=== PATIENT | male | born 1945 | race Caucasian/White ===

== ENCOUNTER 2023-12-03 08:18 | Outpatient (REF) | payer OTHER, SELFPAY ==
--- NOTE | ~2023-12-03 | XR_ITS ---
EXAMINATION: XR KNEE, RIGHT CLINICAL INFORMATION: Right knee pain COMPARISON: None available. TECHNIQUE: Three views of the right knee. FINDINGS: Medial compartment narrowing with degenerative sclerosis and marginal osteophytes. Small marginal osteophytes in the patellofemoral and lateral compartments. Prominent enthesophyte at the superior pole of the patella. No fracture. No joint effusion. Prominent vascular calcifications. XR/XR knee RT 3V IMPRESSION: Moderate medial compartment and mild patellofemoral/lateral compartment osteoarthritis. No acute osseous abnormality. Prepatellar soft tissue swelling, possibly prepatellar bursitis. Electronically signed by: Zhang Tariq MD 12/09/2023 08:50 AM EDT
== END 2023-12-03 08:19 | disposition home or self-care (01) ==
LOC: HO.HOSX 08:18
PROVIDERS: PCP Internal Medicine; Visit Provider Orthopaedic Surgery
DX: M17.11 Unilateral primary osteoarthritis, right knee (principal)
CPT/HCPCS: 73562

== ENCOUNTER 2023-12-03 09:15 | Outpatient (AMB) | payer OTHER, SELFPAY ==
--- NOTE | 2023-12-03 09:16 | MHC.OFFVIS ---
Vital Signs 12/03/23 09:18 Height 5 ft 8 in Weight 175 lb BMI 26.6 Intake Visit Reasons: right knee pain Intake Note: Dalton is a 78 year old male who presents with complaints of progressively worsening right knee pain. He did undergo left total knee replacement surgery several years ago. He reports minimal discomfort in his left knee. He describes his right knee pain as sharp and severe in nature. He has failed the last 3 months of conservative treatment which include a home exercise program, Tylenol and anti-inflammatory medicines. Has had cortisone injections in the past which gave him minimal relief. He also had a series of 3 Euflexxa injections given into his right knee at another facility in April of 2023. He states he got fairly good relief from the Euflexxa injections. He wishes to hold off on right total knee replacement surgery for as long as possible. The patient states that his right knee pain is now interfering with his activities of daily living and his ability to sleep well through the night. Allergies No Known Allergies Allergy (Verified 12/03/23 09:20) Medication List - Last Reconciled 12/03/23 by Jules Escobar MD No Known Home Meds Physical Exam Vital Signs: BMI result Body Mass Index 26.6 Const Other: Well-nourished well-developed very friendly male awake alert and oriented x3 in no acute distress Extrem Other: Bilateral lower extremity examination shows good capillary refill, no skin lesions noted, normal sensation light touch Right knee examination shows a minimal effusion, palpable crepitus with range of motion, pain with range motion, no instability Results Reviewed Results Reviewed: X-rays of the patient's right knee taken today show severe joint space narrowing, subchondral sclerosis, no acute bony abnormalities Assessment & Plan Assessment & Plan (1) Osteoarthritis of right knee: Code(s): M17.11 - Unilateral primary osteoarthritis, right knee Category: Medical Plan Mr. Ribeiro presents with right knee pain due to degenerative joint disease. I had a lengthy discussion with the patient regarding the treatment options. The patient wishes to hold off on right total knee replacement surgery for as long as possible. I agree with this plan. I will see whether or not the patient's insurance company will cover a another series of three Euflexxa injections. I will see him back once the injections are available. Feel free to call me at any time should questions regarding his orthopedic management arise. I spent 20 minutes in reviewing the patient's records and imaging studies, seeing the patient and documenting in the medical record. Orders: Orders XR knee RT 3V Today M25.561 - Pain in right knee Coding Level of Care Code Est Pt Level 3 (93101) Complex EM visit Add On G2211 Diagnoses Osteoarthritis of right knee M17.11
[2023-12-03 09:18] VITALS: BMI 26.6
== END 2023-12-03 09:40 | disposition home or self-care (01) ==
PROVIDERS: PCP Internal Medicine; Visit Provider Orthopaedic Surgery
DX: M17.11 Unilateral primary osteoarthritis, right knee (principal); Z96.652 Presence of left artificial knee joint
CPT/HCPCS: 99213; G2211

== ENCOUNTER 2024-01-09 08:39 | Outpatient (AMB) | payer OTHER, SELFPAY ==
--- NOTE | 2024-01-09 08:43 | MHC.OFFVIS ---
Vital Signs 01/09/24 08:44 Height 5 ft 8 in Weight 175 lb BMI 26.6 Intake Visit Reasons: Rt Knee Euflexxa #1 Intake Note: Dalton is a 78 year old male who presents with complaints of progressively worsening right knee pain. He has had cortisone injections in the past which gave him no relief. He did undergo left total knee replacement surgery in the past. He denies any pain in his left knee. He would like to hold off on right total knee replacement surgery for as long as possible. He has tried Tylenol and anti-inflammatory medicines which gave him minimal relief. He has also done physical therapy exercises which aggravated his pain. Allergies No Known Allergies Allergy (Verified 01/09/24 08:45) Medication List - Last Reconciled 01/09/24 by Jules Escobar MD No Known Home Meds Physical Exam Vital Signs: BMI result Body Mass Index 26.6 Const Other: Well-nourished well-developed very friendly male awake alert and oriented x3 in no acute distress Extrem Other: Bilateral lower extremity examination shows good capillary refill, no skin lesions noted, normal sensation light touch Right knee examination shows a minimal effusion, palpable crepitus with range of motion, pain with range of motion, no instability Office Procedures Joint Injection/Aspiration Joint Injection/Aspiration Primary Site: right knee Prep: site was prepped using aseptic technique Injected: 20 mg of (Euflexxa viscosupplementation) and 1% plain lidocaine Procedure: The patient tolerated the procedure well Coding 69864 - Large joint Procedure code (CPT) selection complete Results Reviewed Results Reviewed: X-rays of the patient's right knee show joint space narrowing, subchondral sclerosis, no acute bony abnormalities Assessment & Plan Assessment & Plan (1) Osteoarthritis of right knee: Code(s): M17.11 - Unilateral primary osteoarthritis, right knee Category: Medical Plan Mr. Ribeiro presents with progressively worsening right knee pain due to osteoarthritis. I had a lengthy discussion with the patient regarding the treatment options. The risks and benefits of a series of 3 Euflexxa viscosupplementation injections were discussed at length with the patient. The patient wishes to proceed. He tolerated the 1st injection well. He will continue with his home exercise program. He will follow up next week as scheduled. Feel free to call me at any time should questions regarding his orthopedic management arise. I spent 22 minutes in reviewing the patient's records and imaging studies, seeing the patient and documenting in the medical record. Orders: Orders AMB Joint Injection/Aspiration Today M17.11 - Unilateral primary osteoarthritis, right knee Coding Level of Care Code Est Pt Level 3 (35338) Complex EM visit Add On G2211 Diagnoses Osteoarthritis of right knee M17.11 CPT Codes Coding - 16387 Large joint: 66536 - Large joint ([id number])
[2024-01-09 08:44] VITALS: BMI 26.6
== END 2024-01-09 08:58 | disposition home or self-care (01) ==
PROVIDERS: PCP Internal Medicine; Visit Provider Orthopaedic Surgery
DX: M17.11 Unilateral primary osteoarthritis, right knee (principal)
CPT/HCPCS: 20610; 99213

== ENCOUNTER → 2024-01-09 08:39 | Outpatient (BNVA) | payer OTHER, SELFPAY | PROVIDERS: PCP Internal Medicine; Visit Provider Orthopaedic Surgery | DX: M17.11 Unilateral primary osteoarthritis, right knee (principal) | CPT/HCPCS: 20610; J2003; J7323 ==

== ENCOUNTER 2024-01-17 08:25 | Outpatient (AMB) | payer OTHER, SELFPAY ==
--- NOTE | 2024-01-17 08:27 | MHC.OFFVIS ---
Vital Signs 01/17/24 08:31 Height 5 ft 8 in Weight 175 lb BMI 26.6 Intake Visit Reasons: Rt Knee Euflexxa #2 Intake Note: Dalton a 78 year old male who presents today for a right knee Euflexxa injection #2. Allergies No Known Allergies Allergy (Verified 01/17/24 08:31) Medication List - Last Reconciled 01/18/24 by Jasper Anne PA-C No Known Home Meds HPI HPI Rt Knee Euflexxa #2: Details: 78-year-old male who returns to the office today for right knee Euflexxa gel injection #2. Review of Systems Const All systems reviewed & are unremarkable except as noted in HPI and below Physical Exam Vital Signs: BMI result Body Mass Index 26.6 Const Other: Well-nourished well-developed very friendly male awake alert and oriented x3 in no acute distress Extrem Other: Right knee: Skin intact, no erythema or joint effusion. Tenderness along the medial and lateral joint line. Full ROM with crepitus. Negative Jayro?s. No ligamentous laxity. NVI. Office Procedures AMB Joint Injection/Aspiration Joint Injection/Aspiration Details: #2 euflexxa Primary Site: right knee Prep: site was prepped using aseptic technique, ethochloride spray was applied and injection warnings given Injected: in the joint Approach Used: anterolateral Procedure: The patient tolerated the procedure well and there was some relief with the local anesthesia Coding 22347 - Glenohumeral/Tronchanteric Bursa/Intraarticular Procedure code (CPT) selection complete Assessment & Plan Assessment & Plan (1) Osteoarthritis of right knee: Code(s): M17.11 - Unilateral primary osteoarthritis, right knee Category: Medical Qualifiers: Osteoarthritis type: primary Qualified Code(s): M17.11 - Unilateral primary osteoarthritis, right knee Plan The patient did consent to move forward with the right knee Euflexxa gel injection #2, which was tolerated well. I recommended rest, ice, and elevation and OTC anti-inflammatories as needed for discomfort. follow-up in [address] Escobar for Euflexxa gel injection #3. Patient Instructions: Scribed for Jasper Anne PA-C, by Jeffry Rowley health care / medical job titles, on 01/17/2024 at 8:30 AM EST.? I, Jasper Anne PA-C, have personally reviewed and agree with the information entered by the scribe. Coding Level of Care Code Procedure Only Diagnoses Primary osteoarthritis of right knee M17.11 Osteoarthritis type: primary CPT Codes Coding - Joint 7: 45021 - Glenohumeral/Tronchanteric Bursa/Intraarticular ([id number])
[2024-01-17 08:31] VITALS: BMI 26.6
== END 2024-01-17 12:21 | disposition home or self-care (01) ==
LOC: HO.HOS 08:25
PROVIDERS: PCP Internal Medicine; Visit Provider Physician Assistant
DX: M17.11 Unilateral primary osteoarthritis, right knee (principal)
CPT/HCPCS: 20610

== ENCOUNTER → 2024-01-17 08:25 | Outpatient (BNVA) | payer OTHER, SELFPAY | PROVIDERS: PCP Internal Medicine; Visit Provider Physician Assistant | DX: M17.11 Unilateral primary osteoarthritis, right knee (principal) | CPT/HCPCS: 20610; J7323 ==

== ENCOUNTER 2024-01-23 09:39 | Outpatient (AMB) | payer OTHER, SELFPAY ==
--- NOTE | 2024-01-23 09:42 | MHC.OFFVIS ---
Vital Signs 01/23/24 09:43 Height 5 ft 8 in Weight 175 lb BMI 26.6 Intake Visit Reasons: Rt Knee Euflexxa #3 Intake Note: Dalton is a 78 year old male who presents today for his 3rd dose of Euflexxa on the right knee. The patient states that he has gotten fairly good relief from the 1st 2 injections. He continues with his home exercise program. Allergies No Known Allergies Allergy (Verified 01/23/24 09:43) Medication List - Last Reconciled 01/24/24 by Jules Escobar MD No Known Home Meds Physical Exam Vital Signs: BMI result Body Mass Index 26.6 Extrem Other: Right knee examination shows a minimal effusion, palpable crepitus with range of motion, pain with range of motion, no instability Office Procedures AMB Joint Injection/Aspiration Joint Injection/Aspiration Primary Site: right knee Prep: site was prepped using aseptic technique Injected: 20 mg of (Euflexxa viscosupplementation) and 1% plain lidocaine Procedure: The patient tolerated the procedure well Coding 90730 - Large joint Procedure code (CPT) selection complete Results Reviewed Results Reviewed: X-rays of the patient's right knee show joint space narrowing, subchondral sclerosis, no acute bony abnormalities Assessment & Plan Assessment & Plan (1) Osteoarthritis of right knee: Code(s): M17.11 - Unilateral primary osteoarthritis, right knee Category: Medical Qualifiers: Osteoarthritis type: primary Qualified Code(s): M17.11 - Unilateral primary osteoarthritis, right knee Plan Mr. Ribeiro presents with right knee pain due to degenerative joint disease. The risks and benefits of his 3rd Euflexxa viscosupplementation injection were discussed at length with the patient. The patient wished to proceed. Tolerated the injection well. He will continue with his home exercise program. He will contact me prior to his follow-up appointment in 3 months should any questions or concerns arise. Feel free to call me at any time should questions regarding his orthopedic management arise. I spent 22 minutes in reviewing the patient's records and imaging studies, seeing the patient and documenting in the medical record. Orders: Orders AMB Joint Injection/Aspiration 01/23/24 M17.11 - Unilateral primary osteoarthritis, right knee Coding Level of Care Code Procedure Only Diagnoses Primary osteoarthritis of right knee M17.11 Osteoarthritis type: primary CPT Codes Coding - 97217 Large joint: 69777 - Large joint ([id number])
[2024-01-23 09:43] VITALS: BMI 26.6
== END 2024-01-23 10:19 | disposition home or self-care (01) ==
LOC: HO.HOS 09:40
PROVIDERS: PCP Internal Medicine; Visit Provider Orthopaedic Surgery
DX: M17.11 Unilateral primary osteoarthritis, right knee (principal)
CPT/HCPCS: 20610

== ENCOUNTER → 2024-01-23 09:39 | Outpatient (BNVA) | payer OTHER, SELFPAY | PROVIDERS: PCP Internal Medicine; Visit Provider Orthopaedic Surgery | DX: M17.11 Unilateral primary osteoarthritis, right knee (principal) | CPT/HCPCS: 20610; J2003; J7323 ==